=== PATIENT | female | born 1995 | race African-American/Black ===

== ENCOUNTER 2017-06-06 15:42 | Emergency (ER) | payer BC, OTHER ==
[~2017-06-06] VITALS: Ht 157.5 cm; Wt 81.6 kg
[2017-06-06 16:03] VITALS: BP 166/100
[2017-06-06 17:25] LABS: BACTERIA,URINE MOD /HPF (0-FEW); BILIRUBIN,URINE NEG (NEG); CLARITY,URINE HAZY; COLOR,URINE YELLOW; GLUCOSE,URINE NEG (NEG); NITRITE,URINE NEG (NEG); SQUAMOUS EPITHELIAL CELL,UR MOD /LPF; UROBILINOGEN,URINE 0.2 mg/dL (0.2 mg/dL)
[2017-06-06 17:27] LABS: U PREG PATIENT NEGATIVE (NEG)
[2017-06-06] MEDS ORDERED: NAPR-683 PO (17:55)
[2017-06-06] MEDS ORDERED: SULF1TAB24 PO (17:55)
--- NOTE | 2017-06-06 17:55 | PHYS DOC ---
Past History Past Medical History: Other Past Surgical History: Other Smoking: Non-smoker Additional Smoking Information: 5 cigs a day Alcohol Use: None Drug Use: None Adult General Chief Complaint Chief Complaint: ABDOMINAL PAIN [facility] 21-year-old male patient with history of PCOS complaining of suprapubic pain for the last 10 days as a constant pain with radiation to her back one episode of vomiting last week and mild nausea without diarrhea or constipation, urinary symptoms, vaginal bleeding or discharge. Patient rated her pain moderate and states the pain getting force with movement. Patient also complaining of nasal congestion and sore throat and cough for one week without fever and chills. Review of Systems Review of Systems Constitutional: Denies fever or chills [] Eyes: Denies change in visual acuity, redness, or eye pain [] HENT: Reports nasal congestion or sore throat Respiratory: Denies cough or shortness of breath [] Cardiovascular: No additional information not addressed in HPI [] GI: Reports abdominal pain, nausea, vomiting, denies bloody stools or diarrhea [ ] : Denies dysuria or hematuria [] Musculoskeletal: Denies back pain or joint pain [] Integument: Denies rash or skin lesions [] Neurologic: Denies headache, focal weakness or sensory changes [] Endocrine: Denies polyuria or polydipsia [] All other systems were reviewed and found to be within normal limits, except as documented in this note. Allergies Allergies Allergies Coded Allergies Type Severity Reaction Last Updated Verified No Known Drug Allergies 06/06/17 No Physical Exam Physical Exam Constitutional: Well developed, well nourished, no acute distress, non-toxic appearance. [] HENT: Normocephalic, atraumatic, bilateral external ears normal, oropharynx moist, no oral exudates, nose normal. [] Eyes: PERRLA, EOMI, conjunctiva normal, no discharge. [] Neck: Normal range of motion, no tenderness, supple, no stridor. [] Cardiovascular:Heart rate regular rhythm, no murmur [] Lungs & Thorax: Bilateral breath sounds clear to auscultation [] Abdomen: Bowel sounds normal, soft, no tenderness, no masses, no pulsatile masses. [] Skin: Warm, dry, no erythema, no rash. [] Back: No tenderness, no CVA tenderness. [] Extremities: No tenderness, no cyanosis, no clubbing, ROM intact, no edema. [] Neurologic: Alert and oriented X 3, normal motor function, normal sensory function, no focal deficits noted. [] Psychologic: Affect normal, judgement normal, mood normal. [] Current Patient Data Vital Signs Vital Signs Date Time Temp Pulse Resp B/P (MAP) Pulse Ox O2 Delivery O2 Flow Rate FiO2 06/06/17 16:03 98.6 112 100 Lab Results Laboratory Tests Test 06/06/17 16:35 06/06/17 16:54 Urine Collection Type Unknown Urine Color Yellow Urine Clarity Hazy Urine pH 7.0 Urine Specific [place] 1.025 Urine Protein Neg (NEG-TRACE) Urine Glucose (UA) Neg mg/dL (NEG) Urine Ketones (Stick) Neg mg/dL (NEG) Urine Blood Neg (NEG) Urine Nitrite Neg (NEG) Urine Bilirubin Neg (NEG) Urine Urobilinogen Dipstick 0.2 mg/dL (0.2 mg/dL) Urine Leukocyte Esterase Neg (NEG) Urine RBC 3-5 /HPF (0-2) Urine WBC 1-4 /HPF (0-4) Urine Squamous Epithelial Cells Mod /LPF Urine Bacteria Mod /HPF (0-FEW) Urine Mucus Slight /LPF Urine Test Negative (NEG) POC Urine HCG, Qualitative hcg negative (Negative) EKG EKG [] Radiology/Procedures Radiology/Procedures [] Course & Med Decision Making Course & Med Decision Making Pertinent Labs reviewed. (See chart for details) Evaluation of patient in ER showed 21-year-old male patient with complaining of lower abdominal pain for 10 days and URI symptom for 7 days. Patient had unremarkable physical exam. UA showed UTI. Plan discharge patient home with diagnosis of UTI and viral URI. [] Dragon Disclaimer Dragon Disclaimer This electronic medical record was generated, in whole or in part, using a voice recognition dictation system. Departure Departure: Impression: Primary Impression: Urinary tract infection Additional Impressions: Suprapubic pain Upper respiratory infection Disposition: HOME, SELF-CARE (At 1753) Condition: STABLE Referrals: SEGUNDO WANG MD (PCP) Patient Instructions: Upper Respiratory Infection, Adult, Urinary Tract Infection Additional Instructions: Drink plenty liquid Follow-up with your primary care physician in 3-5 days Return to ER if not getting better Scripts Naproxen (NAPROSYN) 500 Mg Tablet 1 TAB PO BID, #14 TAB 1 Refill Prov: GAIL DAVID MD 06/06/17 Sulfamethoxazole/Trimethoprim (BACTRIM DS TABLET) 1 Each Tablet 1 TAB PO BID, #14 TAB Prov: GAIL DAVID MD 06/06/17 Problem Qualifiers GAIL DAVID MD Jun 06, 2017 17:55
== END 2017-06-06 18:18 | disposition home or self-care (01) ==
LOC: ER 15:42
DX: N39.0 Urinary tract infection, site not specified (principal); J06.9 Acute upper respiratory infection, unspecified; F17.210 Nicotine dependence, cigarettes, uncomplicated; E28.2 Polycystic ovarian syndrome
CPT/HCPCS: 81001; 81025; 87086; 99284

== ENCOUNTER 2017-09-20 12:31 | Emergency (ER) | payer OTHER ==
[~2017-09-20 12:31] MED LIST: NAPR-683 PO; SULF1TAB24 PO
--- NOTE | 2017-09-20 13:00 | PHYS DOC ---
Past History Past Medical History: Other Past Surgical History: Other Smoking: Non-smoker Alcohol Use: None Drug Use: None Adult General Chief Complaint Chief Complaint: ABDOMINAL PAIN HPI HPI 22-year-old female presents with lower abdominal pain, vaginal discharge, dysuria and increased urinary frequency for the last 3 weeks. Patient thought she may have yeast infection so she treated herself with [id number] medications. This has not improved her symptoms. The last few days she has had increased urinary frequency and more discomfort in her abdomen. She has some white and some yellowish discharge from her vagina that has an odor but she is not able to describe the odor to me. Her last sexual encounter was late July. She denies putting any other foreign objects in her vagina. She denies fever, chills, nausea, vomiting, constipation or diarrhea. Review of Systems Review of Systems Constitutional: Denies fever or chills [] Eyes: Denies change in visual acuity, redness, or eye pain [] HENT: Denies nasal congestion or sore throat [] Respiratory: Denies cough or shortness of breath [] Cardiovascular: No additional information not addressed in HPI [] GI: Denies abdominal pain, nausea, vomiting, bloody stools or diarrhea [] : Denies hematuria. Has vaginal discharge and dysuria[] Musculoskeletal: Denies back pain or joint pain [] Integument: Denies rash or skin lesions [] Neurologic: Denies headache, focal weakness or sensory changes [] Endocrine: Denies polyuria or polydipsia [] All other systems were reviewed and found to be within normal limits, except as documented in this note. Allergies Allergies Allergies Coded Allergies Type Severity Reaction Last Updated Verified No Known Drug Allergies 06/06/17 No Physical Exam Physical Exam Constitutional: Well developed, well nourished, no acute distress, non-toxic appearance. [] HENT: Normocephalic, atraumatic, bilateral external ears normal, oropharynx moist, no oral exudates, nose normal. [] Eyes: PERRLA, EOMI, conjunctiva normal, no discharge. [] Neck: Normal range of motion, no tenderness, supple, no stridor. [] Cardiovascular:Heart rate regular rhythm, no murmur [] Lungs & Thorax: Bilateral breath sounds clear to auscultation [] Abdomen: Bowel sounds normal, soft. Mild suprapubic tenderness : Normal external exam. White and brown discharge with mild odor. No cervical motion tenderness. [] Skin: Warm, dry, no erythema, no rash. [] Back: No tenderness, no CVA tenderness. [] Extremities: No tenderness, no cyanosis, no clubbing, ROM intact, no edema. [] Neurologic: Alert and oriented X 3, normal motor function, normal sensory function, no focal deficits noted. [] Psychologic: Affect normal, judgement normal, mood normal. [] Current Patient Data Lab Results Laboratory Tests Test 09/20/17 11:50 POC Urine HCG, Qualitative hcg negative (Negative) EKG EKG [] Radiology/Procedures Radiology/Procedures [] Course & Med Decision Making Course & Med Decision Making Pertinent Labs and Imaging studies reviewed. (See chart for details) I offered to treat the patient prophylactically for GC and chlamydia and she like to be treated today rather than waiting for results. We will treat her here. The patient's urine is negative for infection. After a delay, the lab informed us that the BV, trichomoniasis, yeast is a send out that will not be resulted today. As a result, I will give the patient a prescription for Flagyl as well as Diflucan [] Dragon Disclaimer Dragon Disclaimer This electronic medical record was generated, in whole or in part, using a voice recognition dictation system. Departure Departure: Referrals: SONALI CHO MD (PCP) Scripts Metronidazole (FLAGYL) 500 Mg Tablet 500 MG PO BID for 7 Days, #14 TAB Prov: CHAPARRO DUNN DO 09/20/17 Fluconazole (DIFLUCAN) 150 Mg Tablet 1 TAB PO ONCE, #1 TAB 1 Refill Prov: CHAPARRO DUNN DO 09/20/17 CHAPARRO DUNN DO September 20, 2017 13:00
[2017-09-20] MEDS ORDERED: AZITHROMYCIN 250 MG TABLET. PO ONE (13:15)
[2017-09-20] MEDS ORDERED: cefTRIAXone IM 250 MG VIAL IM ONE (13:15)
[2017-09-20 13:49] LABS: BACTERIA,URINE 0 /HPF (0-FEW); BILIRUBIN,URINE NEG (NEG); CLARITY,URINE CLEAR; COLOR,URINE STRAW; GLUCOSE,URINE NEG (NEG); NITRITE,URINE NEG (NEG); RBC,URINE 0 /HPF (0-2); SQUAMOUS EPITHELIAL CELL,UR OCC /LPF; UROBILINOGEN,URINE 0.2 mg/dL (0.2 mg/dL); WBC,URINE 0 /HPF (0-4)
[2017-09-20] MEDS ORDERED: FLUC150T PO (14:30)
[2017-09-20] MEDS ORDERED: METR500T PO (14:30)
[2017-09-21 16:12] LABS: CHLAMYDIA PROBE Negative (Negative)
== END 2017-09-20 14:32 | disposition home or self-care (01) ==
LOC: ER 12:31
DX: N89.8 Other specified noninflammatory disorders of vagina (principal); R30.0 Dysuria; R35.0 Frequency of micturition
CPT/HCPCS: 36415; 81001; 81025; 87480; 87491; 87510; 87591; 87660; 96372; 99284; J0456; J0696